=== PATIENT | male | born 1950 | race Caucasian/White ===

== ENCOUNTER 2016-05-31 18:04 | Emergency (ER) | payer OTHER ==
[~2016-05-31] VITALS: Ht 170.2 cm; Wt 68.0 kg
[~2016-05-31 18:04] MED LIST: BACTRIM,SEPT1 TABLET PO; FLOMAX0.4 MG PO; Inhaler IH; LEVAQUIN750 MG PO; LEVOFLOXACIN750 MG PO; PREDNISONE50 MG PO; PROAIR RESPICL90 MCG IH; SPIRIVA RESPIMAT4 GM IH; SPIRIVA1 INHALATI IH; SYMBICORT60 INHALAT IH; VENTOLIN HFA18 GM IH
[2016-05-31 19:05] LABS: HEMATOCRIT 46.5 % (38.0-50.0); MCH 32.6 PG (29.0-34.0); MCHC 33.8 G/DL (30.0-36.0); MCV 96.7 FL (86-99); MEAN PLAT.VOLUME 9.4 uM^3 (9.0-12.4); PLATELET COUNT 183 K/uL (156-360); RBC DIS.WIDTH-CV 12.4 % (11.8-14.6); RED BLOOD COUNT 4.81 M/uL (4.00-5.50); WHITE BLOOD COUNT 13.5 K/uL (4.1-10.2)
[2016-05-31 19:13] LABS: CHLORIDE 104 mEq/L (99-109); SODIUM 138 mEq/L (136-147)
[2016-05-31 19:15] LABS: GLUCOSE 100 mg/dL (70-99)
[2016-05-31 19:16] LABS: ANION GAP 11 MEQ/L (2-14)
[2016-05-31 19:18] LABS: GFR ESTIMATE (CALCULATED) > 59 mL/min/
[2016-05-31 19:19] LABS: UREA NITROGEN (BUN) 11 mg/dL (9-23)
[2016-05-31] MEDS ORDERED: PREDNISONE20 MG PO (19:41)
[2016-05-31] MEDS ORDERED: ZITHROMAX Z-PA250 MG PO (19:41)
[2016-05-31 19:59] VITALS: BP 143/74
== END 2016-05-31 20:00 | disposition home or self-care (01) ==
LOC: EME 18:04
DX: B34.9 Viral infection, unspecified (principal); J44.1 Chronic obstructive pulmonary disease with (acute) exacerbation; F17.200 Nicotine dependence, unspecified, uncomplicated; Z85.46 Personal history of malignant neoplasm of prostate
CPT/HCPCS: 71020; 80048; 85027; 99281; 99284; J7512

== ENCOUNTER 2016-07-25 15:57 | Emergency (ER) | payer OTHER ==
[~2016-07-25] VITALS: Ht 172.7 cm; Wt 68.9 kg
[~2016-07-25 15:57] MED LIST changes: +PREDNISONE20 MG PO; +ZITHROMAX Z-PA250 MG PO
[2016-07-25 17:04] LABS: INFLUENZA A VIRAL ANTIGEN NEGATIVE; INFLUENZA B VIRAL ANTIGEN NEGATIVE
[2016-07-25] MEDS ORDERED: PREDNISONE50 MG PO (18:34)
[2016-07-25] MEDS ORDERED: ZITHROMAX250 MG PO (18:34)
[2016-07-25 19:11] VITALS: BP 34/74
== END 2016-07-25 19:12 | disposition home or self-care (01) ==
LOC: EME 15:57
DX: J20.9 Acute bronchitis, unspecified (principal); J44.1 Chronic obstructive pulmonary disease with (acute) exacerbation; F17.200 Nicotine dependence, unspecified, uncomplicated
CPT/HCPCS: 71020; 87502; 94640; 94640 76; 99281; 99284; J7512

== ENCOUNTER 2016-07-30 14:51 | Emergency (ER) | payer OTHER ==
[~2016-07-30] VITALS: Ht 170.2 cm; Wt 67.7 kg
[~2016-07-30 14:51] MED LIST changes: +ZITHROMAX250 MG PO
[2016-07-30 15:25] LABS: EOSINOPHIL (%) 1.3 % (0-5); EOSINOPHIL COUNT 0.1 K/uL (0-0.3); IMMATURE GRANULOCYTE (%) 0.9 % (0.0-0.7); IMMATURE GRANULOCYTE COUNT 0.1 K/uL; INSTRUMENT ABS NEUTROPHIL CT 5.7 K/uL; LYMPHOCYTE COUNT 3.7 K/uL (1.0-2.8); MCH 31.7 PG (29.0-34.0); MCHC 33.7 G/DL (30.0-36.0); MCV 94.1 FL (86-99); MEAN PLAT.VOLUME 9.4 uM^3 (9.0-12.4); MONOCYTE (%) 11.6 % (3-12); MONOCYTE COUNT 1.3 K/uL (0-0.8); NEUTROPHIL (%) 52.2 % (45-76); NEUTROPHIL COUNT 5.7 K/uL (1.8-6.4); PLATELET COUNT 254 K/uL (156-360); RBC DIS.WIDTH-CV 12.2 % (11.8-14.6); RBC DIS.WIDTH-SD 42.5 % (39-53); RED BLOOD COUNT 4.89 M/uL (4.00-5.50)
[2016-07-30 15:37] LABS: CHLORIDE 104 mEq/L (99-109); POTASSIUM 3.9 mEq/L (3.7-5.4); SODIUM 144 mEq/L (136-147)
[2016-07-30 15:39] LABS: GLUCOSE 87 mg/dL (70-99)
[2016-07-30 15:40] LABS: ANION GAP 11 MEQ/L (2-14)
[2016-07-30 15:42] LABS: GFR ESTIMATE (CALCULATED) > 59 mL/min/
[2016-07-30 15:43] LABS: UREA NITROGEN (BUN) 10 mg/dL (9-23)
[2016-07-30 15:48] LABS: TROP-I INTERPRETATION NEGATIVE; TROPONIN-I < 0.01 ng/mL (0.0-0.30)
[2016-07-30] MEDS ORDERED: PREDNISONE50 MG PO (16:29)
[2016-07-30 20:52] VITALS: BP 160/95
== END 2016-07-30 20:53 | disposition short-term general hospital (02) ==
LOC: EME 14:51
PROVIDERS: Emergency Medicine
DX: J44.1 Chronic obstructive pulmonary disease with (acute) exacerbation (principal); R50.9 Fever, unspecified; Z85.46 Personal history of malignant neoplasm of prostate; F17.200 Nicotine dependence, unspecified, uncomplicated
CPT/HCPCS: 71020; 80048; 84484; 85025; 93005; 94640; 99281; 99285; J7512

== ENCOUNTER 2017-02-15 12:10 | Emergency (ER) | payer OTHER ==
[~2017-02-15] VITALS: Ht 172.7 cm; Wt 71.6 kg
[2017-02-15 13:01] LABS: MCH 32.3 PG (29.0-34.0); MCHC 34.3 G/DL (30.0-36.0); MCV 94.2 FL (86-99); MEAN PLAT.VOLUME 9.8 uM^3 (9.0-12.4); PLATELET COUNT 220 K/uL (156-360); RBC DIS.WIDTH-CV 11.9 % (11.8-14.6); RBC DIS.WIDTH-SD 40.9 % (39-53); RED BLOOD COUNT 4.99 M/uL (4.00-5.50)
[2017-02-15 13:12] LABS: CHLORIDE 108 mEq/L (99-109); POTASSIUM 3.8 mEq/L (3.7-5.4); SODIUM 139 mEq/L (136-147)
[2017-02-15 13:14] LABS: GLUCOSE 103 mg/dL (70-99)
[2017-02-15 13:15] LABS: ANION GAP 9 MEQ/L (2-14)
[2017-02-15 13:18] LABS: GFR ESTIMATE (CALCULATED) > 59 mL/min/
[2017-02-15 13:19] LABS: UREA NITROGEN (BUN) 11 mg/dL (9-23)
[2017-02-15 13:23] LABS: TROP-I INTERPRETATION NEGATIVE; TROPONIN-I < 0.01 ng/mL (0.0-0.30)
[2017-02-15 14:06] VITALS: BP 124/80
== END 2017-02-15 14:22 | disposition home or self-care (01) ==
LOC: EME 12:10
PROVIDERS: Emergency Medicine
DX: I10 Essential (primary) hypertension (principal); R42 Dizziness and giddiness; J44.9 Chronic obstructive pulmonary disease, unspecified; Z85.820 Personal history of malignant melanoma of skin; Z85.46 Personal history of malignant neoplasm of prostate; Z90.79 Acquired absence of other genital organ(s); F17.200 Nicotine dependence, unspecified, uncomplicated
CPT/HCPCS: 71020; 80048; 83880; 84484; 85027; 93005; 99281; 99284

== ENCOUNTER 2017-03-28 20:35 | Emergency (ER) | payer OTHER ==
[~2017-03-28] VITALS: Ht 170.2 cm; Wt 68.2 kg
[2017-03-28 21:17] LABS: HEMATOCRIT 51.4 % (38.0-50.0); MCH 31.5 PG (29.0-34.0); MCHC 33.1 G/DL (30.0-36.0); MCV 95.4 FL (86-99); MEAN PLAT.VOLUME 10.1 uM^3 (9.0-12.4); PLATELET COUNT 197 K/uL (156-360); RBC DIS.WIDTH-CV 12.8 % (11.8-14.6); RBC DIS.WIDTH-SD 44.9 % (39-53); RED BLOOD COUNT 5.39 M/uL (4.00-5.50); WHITE BLOOD COUNT 11.9 K/uL (4.1-10.2)
[2017-03-28 21:29] LABS: CHLORIDE 103 mEq/L (99-109); POTASSIUM 4.7 mEq/L (3.7-5.4); SODIUM 139 mEq/L (136-147)
[2017-03-28 21:30] LABS: GLUCOSE 146 mg/dL (70-99)
[2017-03-28 21:32] LABS: ANION GAP 11 MEQ/L (2-14)
[2017-03-28 21:34] LABS: GFR ESTIMATE (CALCULATED) > 59 mL/min/
[2017-03-28 21:35] LABS: UREA NITROGEN (BUN) 14 mg/dL (9-23)
[2017-03-28 21:38] LABS: TROP-I INTERPRETATION NEGATIVE; TROPONIN-I < 0.01 ng/mL (0.0-0.30)
[2017-03-28 22:54] LABS: TOTAL BILIRUBIN 1.3 mg/dL (0.0-1.0)
[2017-03-28 22:55] LABS: ALKALINE PHOSPHATASE 56 IU/L (3-129)
[2017-03-28 22:57] LABS: DIRECT BILIRUBIN 0.5 mg/dL (0.0-0.3)
[2017-03-28 22:58] LABS: LIPASE 17 U/L (1.0-51.0)
[2017-03-29] MEDS ORDERED: NEXIUM40 MG PO (00:45)
[2017-03-29] MEDS ORDERED: ZANTAC300 MG PO (00:45)
[2017-03-29 02:07] VITALS: BP 136/92
== END 2017-03-29 02:08 | disposition home or self-care (01) ==
LOC: EME 20:35 → RME 20:35
DX: K29.70 Gastritis, unspecified, without bleeding (principal); K29.80 Duodenitis without bleeding; K82.4 Cholesterolosis of gallbladder; I71.4 Abdominal aortic aneurysm, without rupture; J44.9 Chronic obstructive pulmonary disease, unspecified; F17.200 Nicotine dependence, unspecified, uncomplicated; Z85.46 Personal history of malignant neoplasm of prostate; Z85.820 Personal history of malignant melanoma of skin
CPT/HCPCS: 71020; 74177; 76705; 80048; 80076; 83690; 84484; 85027; 93005; 99281; 99285; C9113; J2405; J7030; S0028

== ENCOUNTER 2017-05-27 18:38 | Emergency (ER) | payer OTHER ==
[~2017-05-27] VITALS: Ht 170.2 cm; Wt 69.4 kg
[~2017-05-27 18:38] MED LIST changes: +NEXIUM40 MG PO; +ZANTAC300 MG PO
[2017-05-27 20:17] LABS: HEMATOCRIT 46.3 % (38.0-50.0); HEMOGLOBIN 15.9 G/DL (12.5-16.6); MCH 32.6 PG (29.0-34.0); MCHC 34.3 G/DL (30.0-36.0); MCV 95.1 FL (86-99); PLATELET COUNT 261 K/uL (156-360); RBC DIS.WIDTH-CV 12.4 % (11.8-14.6); RBC DIS.WIDTH-SD 43.8 % (39-53); RED BLOOD COUNT 4.87 M/uL (4.00-5.50); WHITE BLOOD COUNT 13.9 K/uL (4.1-10.2)
[2017-05-27 20:32] LABS: CHLORIDE 107 mEq/L (99-109); POTASSIUM 3.7 mEq/L (3.7-5.4); SODIUM 140 mEq/L (136-147)
[2017-05-27 20:33] LABS: GLUCOSE 101 mg/dL (70-99)
[2017-05-27 20:37] LABS: CREATININE 0.8 mg/dL (0.6-1.3); GFR ESTIMATE (CALCULATED) > 59 mL/min/ (58.99-99999)
[2017-05-27 20:38] LABS: UREA NITROGEN (BUN) 12 mg/dL (9-23)
[2017-05-27] MEDS ORDERED: LEVAQUIN500 MG PO (23:02)
[2017-05-28 00:13] VITALS: BP 124/73
== END 2017-05-28 00:55 | disposition home or self-care (01) ==
LOC: EME 18:38
DX: J44.1 Chronic obstructive pulmonary disease with (acute) exacerbation (principal); F17.200 Nicotine dependence, unspecified, uncomplicated; Z85.820 Personal history of malignant melanoma of skin; Z85.46 Personal history of malignant neoplasm of prostate
CPT/HCPCS: 71046; 80048; 85027; 94640; 99281; 99285; J1100

== ENCOUNTER 2017-06-19 12:09 | Emergency (ER) | payer OTHER ==
[~2017-06-19] VITALS: Ht 172.7 cm; Wt 68.1 kg
[~2017-06-19 12:09] MED LIST changes: +LEVAQUIN500 MG PO
[2017-06-19 13:27] LABS: HEMATOCRIT 46.9 % (38.0-50.0); HEMOGLOBIN 15.9 G/DL (12.5-16.6); MCH 32.1 PG (29.0-34.0); MCHC 33.9 G/DL (30.0-36.0); MCV 94.7 FL (86-99); PLATELET COUNT 191 K/uL (156-360); RBC DIS.WIDTH-CV 12.4 % (11.8-14.6); RBC DIS.WIDTH-SD 42.9 % (39-53); RED BLOOD COUNT 4.95 M/uL (4.00-5.50); WHITE BLOOD COUNT 14.2 K/uL (4.1-10.2)
[2017-06-19 13:36] LABS: CHLORIDE 97 mEq/L (99-109); POTASSIUM 4.1 mEq/L (3.7-5.4); SODIUM 132 mEq/L (136-147)
[2017-06-19 13:38] LABS: GLUCOSE 88 mg/dL (70-99)
[2017-06-19 13:42] LABS: CREATININE 1.1 mg/dL (0.6-1.3); GFR ESTIMATE (CALCULATED) > 59 mL/min/ (58.99-99999)
[2017-06-19 13:43] LABS: UREA NITROGEN (BUN) 15 mg/dL (9-23)
[2017-06-19 14:12] LABS: TROP-I INTERPRETATION NEGATIVE; TROPONIN-I 0.01 ng/mL (0.0-0.30)
[2017-06-19] MEDS ORDERED: PREDNISONE20 MG PO (14:43)
[2017-06-19] MEDS ORDERED: LEVAQUIN500 MG PO (14:43)
[2017-06-19 15:29] VITALS: BP 111/59
== END 2017-06-19 15:30 | disposition home or self-care (01) ==
LOC: EME 12:09
DX: J44.1 Chronic obstructive pulmonary disease with (acute) exacerbation (principal); M76.812 Anterior tibial syndrome, left leg; I45.2 Bifascicular block; F17.200 Nicotine dependence, unspecified, uncomplicated; Z85.46 Personal history of malignant neoplasm of prostate; Z85.820 Personal history of malignant melanoma of skin; Z90.79 Acquired absence of other genital organ(s)
CPT/HCPCS: 71046; 73610; 80048; 84484; 85027; 93005; 94640; 94640 76; 99281; 99284; J7512